=== PATIENT | female | born 1950 | race Caucasian/White ===

== ENCOUNTER → 2017-04-16 | Day surgery (SDC) | payer OTHER ==
[~2017-04-16] VITALS: Ht 157.5 cm; Wt 56.8 kg
[~2017-04-16] MED LIST: *morphine SULFATE 8 MG/ML PERIprocedure ONLY ONE; ACETAMINOPHEN 1000 MG/100 ML VIAL IV SCH; BUPIVACAINE/EPINEPHRINE 0.5% 50 ML VIAL ONE; BUPIVACAINE/EPINEPHRINE 0.5% PF 10 ML VIAL INFIL ONE; CHLORHEXIDINE GLUCONATE 2 % 1 PACK (2 CLOTHS) TOPICAL PRN; DO NOT ADM ANY ANTICOAGULANT DRUGS PRN; FAMOTIDINE 20 MG/2 ML VIAL ONE; FISH1000 PO; INSULIN HUMAN REGULAR 1,000 UNITS/10 ML VIAL SQ PRN; KETOROLAC TROMETHAMINE 30 MG/ML (IVP) VIAL IV PUSH ONE; LACTATED RINGER'S 1000 ML IV PRN; LISI-519 PO; METOPROLOL TARTRATE 25 MG TAB PO PRN; MIDAZOLAM HCL 2 MG/2 ML VIAL ONE; MORPHINE SULFATE 4 MG/ML INJ IV PRN; NEOSTIGMINE 3 MG/3 ML SYR IV ONE; ONDANSETRON HCL 4 MG/2 ML VIAL IV PRN; ONDANSETRON HCL 4 MG/2 ML VIAL IV PUSH ONE; PHENYLEPH/NS 1000 MCG/10 ML SYR IV ONE; POTA99TA12 PO; POVIDONE IODINE 5% (ANTISEPSIS KIT) 4 APPLICATIONS EACH NARE PRN; PRAV20TA67 PO; PROPOFOL 200 MG/20 ML AMP IV ONE; SODIUM CHLORID 0.9% 500 ML IV PRN; SODIUM CHLORIDE 0.9% FLUSH 10 ML FLUSH IV FLUSH PRN; SODIUM CHLORIDE 0.9% FLUSH 10 ML FLUSH IV FLUSH SCH; TAB-TAB PO; VERA180C3 PO; ceFAZolin 2 GM PREMIX 50 ML IV SCH; ePHEDrine/NS 25 MG/5 ML SYR IV ONE; fentaNYL CITRATE 250 MCG/5 ML AMP ONE; oxyCODONE/ACETAMINOPHEN 5 MG/325 MG TAB PO PRN
[2017-04-16 06:49] VITALS: BP 145/75; PULSE 71; RESP 20; TEMP 98; O2SAT 97
--- NOTE | 2017-04-16 09:59 | PD.OP ---
cc: Aly Recinos MD Operative Report Date of Surgery: Apr 16, 2017 Preoperative Diagnosis: Chronic cholecystitis and cholelithiasis Postoperative Diagnosis: Chronic cholecystitis and cholelithiasis Procedure: Laparoscopic cholecystectomy Anesthesia: General endotracheal Surgeon: Aly Recinos Hood Maker(s): Perla Pang MS3 CASEY Maldonado Operation and Findings: Operative findings: The patient was found to have a chronically diseased- appearing gallbladder which was thick walled and had adhesions along its entire length. The cystic duct and common bile duct were seen to be of normal caliber. No other abnormalities were noted. Operative procedure: Patient was brought to the operating room and after satisfactory general endotracheal anesthesia obtained, the abdomen was prepped and draped in usual sterile fashion. 0.5% Marcaine with epinephrine was used after the skin for local anesthesia. Small incision was made just above the umbilicus and a 5 mm trocar was inserted into the peritoneal cavity under direct visualization. The abdomen was then distended to 15 mmHg using carbon dioxide after which the camera was reinserted and visceral injury inspected for , with none being identified. Under direct visualization a 12 port and a 5 port placed in the upper abdomen. The fundus the gallbladder was identified and grasped and retracted slightly over the right lobe of the liver. Adhesions were then taken down with blunt dissection as well as using the harmonic scalpel for hemostasis. Once Ramirez's pouch and been cleared of adhesions, it was grasped and retracted inferiorly and laterally, placing tension on the hepatoduodenal ligament. Using blunt dissection the cystic artery and cystic duct were then dissected free to obtain the critical view. Once the critical view been obtained the cystic artery was divided near its junction with the gallbladder using the harmonic scalpel. Likewise the cystic duct was divided near structures with gallbladder using Harmonic scalpel. The Harmonic was then used to dissected gallbladder free from the liver bed without problem. He was placed within an Endo Catch bag and brought through the upper midline incision where his withdrawn without problem. The trochars reinserted and the liver bed inspected and found to be hemostatic. The cystic duct and cystic artery stumps were both inspected and found to be intact with no leakage of bile or blood. The carbon dioxide was then vented as completely as possible the atmosphere. The ports were removed and the 12 mm fascial defect was closed with an interrupted 0 Vicryl suture. The skin was closed with interrupted 4-0 Monocryl subcuticular stitches. Steri-Strips and a sterile dressing were placed and patient was then taken from the operating room in satisfactory condition, having tolerated the procedure without problem. Estimated blood loss was less than 5 mL's. The instrument, sponge, and needle counts were reported as being correct 2 at the end of the procedure. Aly Recinos MD Apr 16, 2017 09:59
[2017-04-16 12:15] VITALS: BP 110/60; PULSE 65; RESP 18; TEMP 97.1; O2SAT 99
== END | disposition home or self-care (01) ==
LOC: HSDC 06:24
PROVIDERS: ATTEND Surgery
DX: K80.10 Calculus of gallbladder with chronic cholecystitis without obstruction (principal); I10 Essential (primary) hypertension; E78.5 Hyperlipidemia, unspecified; I45.10 Unspecified right bundle-branch block; I65.29 Occlusion and stenosis of unspecified carotid artery; M50.30 Other cervical disc degeneration, unspecified cervical region; Z87.891 Personal history of nicotine dependence; Z79.899 Other long term (current) drug therapy
CPT/HCPCS: 00790; 47562; 88304; J0131; J0690; J1885; J2250; J2270; J2370; J2405; J2710; J3010; J7120